=== PATIENT | female | born 1940 | race Caucasian/White ===

== ENCOUNTER 2020-07-08 15:40 | Outpatient (CLI) | payer MEDICARE ==
[2020-07-09] MEDS ORDERED: DEC4T PO (16:04)
== END 2020-07-08 23:59 | disposition home or self-care (01) ==
LOC: RAD 15:40
PROVIDERS: ATTEND Family Medicine
DX: R05 Cough (principal); J98.8 Other specified respiratory disorders
CPT/HCPCS: 71045

== ENCOUNTER 2020-07-09 10:46 | Emergency (ER) | payer MEDICARE ==
[~2020-07-09] VITALS: Ht 154.9 cm; Wt 79.5 kg
[2020-07-09] MEDS ORDERED: [UNRECOGNIZED DRUG - OTHER] IV ONE (13:00)
[2020-07-09 16:00] VITALS: BP 164/87
[2020-07-09] MEDS ORDERED: DEC4T PO (16:04)
== END 2020-07-09 16:17 | disposition home or self-care (01) ==
LOC: ER 10:47
DX: U07.1 COVID-19 (principal); J12.82 Pneumonia due to coronavirus disease 2019; Z88.2 Allergy status to sulfonamides; Z79.899 Other long term (current) drug therapy
CPT/HCPCS: 71045; 99285; J7050; M0243; Q0243